=== PATIENT | female | born 1990 ===

== ENCOUNTER 2017-10-20 19:26 | Emergency (ER) | payer SELFPAY ==
[2017-10-20 19:36] VITALS: BMI 26.2
[2017-10-20 19:37] VITALS: RESP 18
[2017-10-20 19:44] VITALS: TEMP 98
[2017-10-20] MEDS ORDERED: Sodium Chloride 0.9% 1,000 ML IV STA (19:44)
--- NOTE | 2017-10-20 19:49 | ED PDOC ---
Arrival/HPI - General Chief Complaint: Weakness/Neurological Deficit Time Seen by Provider: 10/20/17 19:33 Historian: Patient - History of Present Illness Narrative History of Present Illness (Text): 10/20/17 19:46 27yo female with PMhx of hypotension who present with complaint of generalized weakness, nausea, headache, syncopal episode. Notes that symptom started yesterday . she report one episode of near syncopal episode yesterday and today. Denies cough, sore throat, neck pain, nuchal ridigity, abdominal pain, diarrhea, vomiting, fever, chills, sick contact, any other complaint. Past Medical History - Provider Review Nursing Documentation Reviewed: Yes - Cardiac Hx Hypotension: Yes - Pulmonary Hx Respiratory Disorders: No - Neurological Hx Neurological Disorder: No - HEENT Hx HEENT Disorder: No - Renal Hx Renal Disorder: No - Endocrine/Metabolic Hx Endocrine Disorders: No - Hematological/Oncological Hx Blood Disorders: No - Integumentary Hx Dermatological Disorder: No - Musculoskeletal/Rheumatological Hx Musculoskeletal Disorders: No - Gastrointestinal Hx Gastrointestinal Disorders: No - Genitourinary/Gynecological Hx Genitourinary Disorders: No - Psychiatric Hx Psychophysiologic Disorder: No Hx Substance Use: Yes Family/Social History - Physician Review Nursing Documentation Reviewed: Yes Family/Social History: Unknown Family HX Smoking Status: Never Smoked Hx Alcohol Use: No Hx Substance Use: Yes Allergies/Home Meds Allergies/Adverse Reactions: Allergies No Known Allergies Allergy (Verified 10/20/17 19:33) Review of Systems - Physician Review All systems were reviewed & negative as marked: Yes - Review of Systems Constitutional: Fatigue Eyes: Normal ENT: Normal Respiratory: Normal Cardiovascular: Normal Gastrointestinal: Nausea. absent: Abdominal Pain, Constipation, Diarrhea, Vomiting, Hematochezia, Hematemesis Genitourinary Female: Normal Musculoskeletal: Normal Skin: Normal Neurological: Headache, Dizziness Endocrine: Normal Hemo/Lymphatic: Normal Psychiatric: Normal Physical Exam Vital Signs Reviewed: Yes Vital Signs Temp Pulse Resp BP Pulse Ox 10/20/17 22:05 90 18 105/65 99 10/20/17 19:37 98.0 F 95 H 18 120/78 100 10/20/17 19:36 98.1 F 95 H 18 120/78 100 Temperature: Afebrile Blood Pressure: Normal Pulse: Regular Respiratory Rate: Normal Appearance: Positive for: Well-Appearing, Non-Toxic, Comfortable Pain Distress: None Mental Status: Positive for: Alert and Oriented X 3 Finger Stick Blood Glucose: 81 - Systems Exam Head: Present: Atraumatic, Normocephalic Pupils: Present: PERRL Extroacular Muscles: Present: EOMI Conjunctiva: Present: Normal Mouth: Present: Moist Mucous Membranes Neck: Present: Normal Range of Motion Respiratory/Chest: Present: Clear to Auscultation, Good Air Exchange. No: Respiratory Distress, Accessory Muscle Use Cardiovascular: Present: Regular Rate and Rhythm, Normal S1, S2. No: Murmurs Abdomen: No: Tenderness, Distention, Peritoneal Signs Back: Present: Normal Inspection Upper Extremity: Present: Normal Inspection. No: Cyanosis, Edema Lower Extremity: Present: Normal Inspection. No: Edema Neurological: Present: GCS=15, CN II-XII Intact, Speech Normal, Motor Func Grossly Intact, Normal Sensory Function, Normal Cerebellar Funct, Norm Deep Tendon Reflexes, Gait Normal, Memory Normal, Normal 2Pt Descrimination, Other ( No focal neurological deficit) Skin: Present: Warm, Dry, Normal Color. No: Rashes Psychiatric: Present: Alert, Oriented x 3, Normal Insight, Normal Concentration Medical Decision Making ED Course and Treatment: 10/20/17 21:46 Pt present to for stated history. Her lab was unremarkeble. She have significant finding for UTI. She does not have CVAT and not febrile, which r/o pyelonephritis. EKG NSR @91bpm She declined Head CT states her symptoms improved in ED. Result was DW the pt and she was treated and DC home with Keflex. - Lab Interpretations Lab Results: 10/20/17 19:30 10/20/17 19:30 Lab Results 10/20/17 20:00: Urine Color Light yellow, Urine Appearance Cloudy, Urine pH 6.0 , Ur Specific Welsh 1.020, Urine Protein 30 H, Urine Glucose (UA) Negative, Urine Ketones Negative, Urine Blood Moderate H, Urine Nitrate Negative, Urine Bilirubin Negative, Urine Urobilinogen 0.2, Ur Leukocyte Esterase Moderate H, Urine RBC 20 - 25, Urine WBC 25 - 30, Ur Epithelial Cells 6 - 8, Amorphous Sediment Few, Urine Bacteria Large, Coarse Granular Casts Trace H, Urine Other [place]yeast 10/20/17 19:32: POC Glucose (mg/dL) 81 10/20/17 19:30: Sodium 142, Potassium 3.7, Chloride 103, Carbon Dioxide 25, Anion Gap 18, BUN 8, Creatinine 0.5 L, Est GFR ( Amer) > 60, Est GFR (Non -Af Amer) > 60, Random Glucose 87, Calcium 9.1, Magnesium 2.2, Total Bilirubin 0.5, AST 31, ALT 31, Alkaline Phosphatase 63, Lactate Dehydrogenase 534, Total Creatine Kinase 89, Troponin I < 0.01, Total Protein 8.2, Albumin 4.6, Globulin 3.6, Albumin/Globulin Ratio 1.3 10/20/17 19:30: PT 12.8 H, INR 1.12 H, APTT 31.0, D-Dimer, Quantitative < 200 10/20/17 19:30: WBC 6.9, RBC 4.36, Hgb 12.0, Hct 36.3, MCV 83.3, MCH 27.5, MCHC 33.1, RDW 14.4, Plt Count 287, MPV 11.4 H, Gran % 58.8, Lymph % (Auto) 32.0, [place] % (Auto) 5.3, Eos % (Auto) 3.6, Baso % (Auto) 0.3, Gran # 4.07, Lymph # ( Auto) 2.2, [place] # (Auto) 0.4, Eos # (Auto) 0.3, Baso # (Auto) 0.02 - Medication Orders Current Medication Orders: Discontinued Medications Cephalexin Monohydrate (Keflex) 500 mg PO STAT STA PRN Reason: Protocol Stop: 10/20/17 21:46 Last Admin: 10/20/17 21:59 Dose: 500 mg Sodium Chloride (Sodium Chloride 0.9%) 1,000 mls @ 999 mls/hr IV .Q1H1M STA Stop: 10/20/17 20:44 Last Admin: 10/20/17 20:03 Dose: 999 mls/hr eMAR Start Stop Document 10/20/17 20:03 SF (Rec: 10/20/17 20:03 [place] [email or web address] Intravenous Solution Start Date 10/20/17 Start Time 20:03 End Date 10/20/17 End time 21:04 Total Infusion Time 61 Ketorolac Tromethamine (Toradol) 30 mg IVP STAT STA Stop: 10/20/17 19:46 Last Admin: 10/20/17 20:04 Dose: 30 mg MAR Pain Assessment Document 10/20/17 20:04 SF (Rec: 10/20/17 20:04 [email or web address] Pain Reassessment Is this a pain reassessment? Yes Sleep Is patient sleeping during reassessment? No Presence of Pain Presence of Pain Yes IVP Administration Document 10/20/17 20:04 SF (Rec: 10/20/17 20:04 [place] [email or web address] Charges for Administration # of IVP Administrations 1 Metoclopramide HCl (Reglan) 10 mg IVP STAT STA Stop: 10/20/17 19:45 Last Admin: 10/20/17 20:04 Dose: 10 mg IVP Administration Document 10/20/17 20:04 SF (Rec: 10/20/17 20:04 SF [email or web address] Charges for Administration # of IVP Administrations 1 Disposition/Present on Arrival - Present on Arrival Any Indicators Present on Arrival: No History of DVT/PE: No History of Uncontrolled Diabetes: No Urinary Catheter: No History of Decub. Ulcer: No History Surgical Site Infection Following: None - Disposition Have Diagnosis and Disposition been Completed?: Yes Diagnosis: UTI (urinary tract infection), Dizziness Disposition: HOME/ ROUTINE Disposition Time: 21:50 Patient Plan: Discharge Condition: STABLE Discharge Instructions (ExitCare): Urinary Tract Infections in Adults, Dizziness, Nonvertigo, (DC) Additional Instructions: Follow up with your Doctor Drink plenty of fluid and take medication as directed Return to ED for any new symptoms Prescriptions: Cephalexin [Keflex] 500 mg PO QID #28 capsule Referrals: [facility] [place] - Follow up with primary Forms: [employer] (Mongolian)
[2017-10-20 20:06] LABS: BASO # 0.02 K/mm3 (0.0-2.0); BASO % 0.3 % (0.0-3.0); EOS # 0.3 (0.0-0.7); EOS % 3.6 % (1.5-5.0); GRAN # 4.07 (1.4-6.5); GRAN % 58.8 % (50.0-68.0); LYMPH # 2.2 (1.2-3.4); MEAN CELL VOLUME 83.3 fl (80.0-105.0); MEAN CORPUSCULAR HEMOGLOBIN 27.5 pg (25.0-35.0); MEAN CORPUSCULAR HGB CONC 33.1 g/dl (31.0-37.0); MEAN PLATELET VOLUME 11.4 fl (7.0-11.0); MONO # 0.4 (0.1-0.6); MONO % 5.3 % (1.0-6.0); RBC 4.36 10^6/uL (3.5-6.1); RED CELL DISTRIBUTION WIDTH 14.4 % (11.5-14.5); WHITE BLOOD COUNT 6.9 10^3/ul (4.5-11.0)
[2017-10-20 20:13] LABS: URINE BILIRUBIN NEGATIVE (NEGATIVE); URINE BLOOD MODERATE (NEGATIVE); URINE GLUCOSE (UA) NEGATIVE (NEGATIVE); URINE LEUKOCYTE ESTERASE MODERATE Leu/uL (NEGATIVE); URINE PROTEIN 30 mg/dL (<30 mg/dL); URINE UROBILINOGEN 0.2 E.U./dL (<1 E.U./dL)
[2017-10-20 20:14] LABS: D DIMER < 200 ng/mL (0-243); INR 1.12 (0.93-1.08); PROTHROMBIN TIME 12.8 SECONDS (9.4-12.5)
[2017-10-20 20:15] LABS: URINE APPEARANCE CLOUDY (CLEAR); URINE COLOR LIGHT YELLOW (YELLOW)
[2017-10-20 20:18] LABS: URINE RBC 20 - 25 /hpf (0-2); URINE WBC 25 - 30 /hpf (0-6)
[2017-10-20 20:19] LABS: URINE AMORPHOUS SEDIMENT FEW; URINE BACTERIA LARGE (NEG); URINE COARSE GRANULAR CAST TRACE /hpf (0-2)
[2017-10-20 20:22] LABS: ALB/GLOB RATIO 1.3 (1.1-1.8); ALBUMIN 4.6 g/dL (3.0-4.8); CALCIUM 9.1 mg/dL (8.4-10.5); GFR AFRICAN-AMERICAN > 60; GFR NON-AFRICAN AMERICAN > 60
[2017-10-20 20:33] LABS: TROPONIN I < 0.01 ng/mL
[2017-10-20 20:51] LABS: ALT/SGPT 31 U/L (7-56); AST/SGOT 31 U/L (14-36); BLOOD UREA NITROGEN 8 mg/dL (7-21)
[2017-10-20 22:07] VITALS: BP 105/65; PULSE 90; O2SAT 99
--- NOTE | 2017-10-21 09:43 | CARD ---
APPROVED REPORT EKG Measurement Heart [id number] <Conclusion> Normal sinus rhythm Normal ECG
== END 2017-10-20 22:05 | disposition home or self-care (01) ==
LOC: ED 19:26
DX: N39.0 Urinary tract infection, site not specified (principal); R42 Dizziness and giddiness
CPT/HCPCS: 80053; 81001; 82550; 82948; 83615; 83735; 84484; 85025; 85378; 85610; 85730; 93005; 96361; 96374; 96375; 99285; J1885; J2765; J7040